=== PATIENT | female | born 1990 | race Hispanic/Latino ===

== ENCOUNTER 2023-02-15 09:05 | Emergency (ER) | payer OTHER ==
[~2023-02-15] VITALS: Ht 154.9 cm; Wt 97.1 kg
[2023-02-15] MEDS ORDERED: IBUPROFEN 600 MG TABLET PO ONE (10:00)
[2023-02-15] MEDS ORDERED: IBUP-2070 PO (10:34)
[2023-02-15 10:47] VITALS: BP 112/67
== END 2023-02-15 10:51 | disposition home or self-care (01) ==
LOC: EDH 09:05
DX: J02.9 Acute pharyngitis, unspecified (principal); Z20.822 Contact with and (suspected) exposure to COVID-19; Z98.890 Other specified postprocedural states
CPT/HCPCS: 99283; 87635; 87880; 87804 ×2; C9803

== ENCOUNTER 2023-07-25 19:17 | Emergency (ER) | payer OTHER ==
[~2023-07-25] VITALS: Ht 154.9 cm; Wt 97.5 kg
[~2023-07-25 19:17] MED LIST: IBUP-2070 PO
[2023-07-25 19:38] VITALS: BP 129/68; PULSE 76; RESP 18
[2023-07-25] MEDS ORDERED: 0.9%NACL 1000ML 1,000 ML IV ONE (20:00)
[2023-07-25 20:03] LABS: BASOPHILS # (AUTO) 0.05 K/uL (0.00-0.20); BASOPHILS % (AUTO) 0.4 % (0.0-5.0); EOSINOPHILS # (AUTO) 0.06 K/uL (0.00-0.70); EOSINOPHILS % (AUTO) 0.5 % (0.0-8.0); HEMATOCRIT 39.9 % (36-48); IMMATURE GRANULOCYTE ABSOLUTE 0.04 K/uL (0-1); LYMPHOCYTES # (AUTO) 2.8 K/uL (1.0-4.8); LYMPHOCYTES % (AUTO) 23.1 % (21.0-51.0); MEAN CORPUSCULAR HEMOGLOBIN 25.7 pg (27.0-33.0); MEAN CORPUSCULAR HGB CONC 31.8 g/dL (32.0-36.0); MEAN CORPUSCULAR VOLUME 80.6 fL (79-99); MONOCYTES # (AUTO) 0.5 K/uL (0.1-1.0); MONOCYTES % (AUTO) 3.8 % (3.0-13.0); NEUTROPHILS # (AUTO) 8.8 K/uL (1.8-7.7); NEUTROPHILS % (AUTO) 71.9 % (40.0-77.0); PLATELET COUNT (AUTO) 377 K/uL (130-400); RED BLOOD CELL COUNT(AUTO) 4.95 MIL/uL (4.00-5.50); RED CELL DISTRIBUTION WIDTH 16.3 % (11.0-15.5); WHITE BLOOD COUNT (AUTO) 12.2 K/uL (4.8-10.8)
[2023-07-25 20:13] LABS: CREATININE 0.9 mg/dL (0.5-1.5); POTASSIUM 3.8 mmol/L (3.5-5.1)
[2023-07-25 20:14] LABS: APPEARANCE,URINE CLOUDY (CLEAR); BILIRUBIN,URINE NEGATIVE (NEGATIVE); COLOR,URINE LIGHT-YELLOW (YELLOW); GLUCOSE, URINE (UA) NEGATIVE (NEGATIVE); KETONES,URINE NEGATIVE (NEGATIVE); LEUKOCYTE ESTERASE ,URINE 250 Leu/uL (NEGATIVE); NITRATE,URINE NEGATIVE (NEGATIVE); OCCULT BLOOD,URINE NEGATIVE (NEGATIVE); PROTEIN,URINE NEGATIVE (NEGATIVE); UROBILINOGEN,URINE 0.2 mg/dL (0.2-1.0)
[2023-07-25 20:17] LABS: HCG,QUALITATIVE URINE NEGATIVE (NEGATIVE)
[2023-07-25 20:18] LABS: ADD UA MICROSCOPIC YES; BILIRUBIN,TOTAL 0.4 mg/dL (0.2-1.0); TOTAL PROTEIN, SERUM 7.8 g/dL (6.0-8.3)
[2023-07-25 20:20] LABS: BACTERIA,URINE MOD /HPF (None Seen); MUCUS,URINE RARE LPF (None Seen); SQUAMOUS EPITHELIAL CELL,UR MANY /HPF (0-2)
[2023-07-25] MEDS ORDERED: SULF1TAB42 PO (20:36)
[2023-07-25] MEDS ORDERED: CEFTRIAXONE 1G VIAL IVPB ONE (21:00)
== END 2023-07-25 21:40 | disposition home or self-care (01) ==
LOC: EDH 19:17
DX: N39.0 Urinary tract infection, site not specified (principal); Z79.899 Other long term (current) drug therapy; Z98.890 Other specified postprocedural states
CPT/HCPCS: 99283; 96374; 96361; 80053; 83690; 85025; 87088; 87797; 87486; 81001; 81025; 36415; J7030; J0696

== ENCOUNTER 2025-07-01 03:52 | Observation (INO) | payer MEDICAID ==
[~2025-07-01] VITALS: Ht 154.9 cm; Wt 103.9 kg
[2025-07-01] VITALS (27 sets, daily range): BP systolic 94–135; BP diastolic 54–80; PULSE 63–85; RESP 16–20; TEMP 97.5–98.2; O2SAT 99–100
[~2025-07-01 03:52] MED LIST changes: +IBUP-1492 PO; -IBUP-2070 PO; +LORA10TA7 PO; +SODI30SP3 NS; +SULF1TAB42 PO
[2025-07-01 04:21] LABS: APPEARANCE,URINE CLEAR (CLEAR); GLUCOSE, URINE (UA) NEGATIVE (NEGATIVE); LEUKOCYTE ESTERASE ,URINE NEGATIVE Leu/uL (NEGATIVE); NITRATE,URINE NEGATIVE (NEGATIVE); OCCULT BLOOD,URINE NEGATIVE (NEGATIVE)
[2025-07-01 04:23] LABS: ADD UA MICROSCOPIC NO
--- NOTE | 2025-07-01 04:27 | ERN ---
ED Note History of Present Illness Stated Complaint: C/O RLQ PAIN RADIATING TO BACK W/ N X V Chief Complaint: Abdominal Pain Time Seen by MD: 04:00 Dictation: This is a 34-year-old female who is 4 weeks presented to the emergency room with complaints of nausea vomitings and right lower quadrant abdominal pain radiating to the back. She also reported diarrhea. She denied any constipation. No fever chills or rigors. No history of any burning micturition or dysuria. She ate duran and sausage for dinner and around 8:00 p.m. she developed the abdominal pain. She is 4 weeks Temperature 98.7 pulse 94 respirations 20 blood pressure 139/76 with a pulse oximetry of 98% on room air Allergies: Coded Allergies: No Known Drug Allergies (Unverified Allergy, Unknown, 02/15/23) Home Meds Active Scripts Loratadine (Loratadine) 10 Mg Tablet, 1 TAB PO DAILY for allergy symptoms for 7 Days, #7 TAB 0 Refills Prov:ELADIO STOVALL 01/09/25 Sodium Chloride (Saline Nasal [place]) 0.65 % [place], 1 SPRAY NS QID for 7 Days, #60 ML 0 Refills Prov:ELADIO STOVALL 01/09/25 Sulfamethoxazole/Trimethoprim (Bactrim Ds Tablet) 800 Mg-160 Mg Tablet, 1 TAB PO BID for 10 Days, #20 TAB 0 Refills Prov:ANSHU FOX MD 07/25/23 Ibuprofen (Ibuprofen) 600 Mg Tablet, 600 MG PO Q6H PRN for PAIN, #15 TAB Prov:KAL YANCEY 02/15/23 Past Medical History Past Medical History: No Pertinent History Surgical History: Surgical History Other: HEART SURGERY Family History: Negative Social History: Negative, Lives with family History: Not Applicable : 1 Para: 0 Aborts: 0 RN Note Reviewed/Agreed w/PFSH: Yes Review of System Dictation Constitutional: Negative for fever,chills, and weight loss Eyes: Negative for injury, pain,redness, and discharge ENT: Negative for injury,pain or swelling Cardiovascular: Negative for chest pain, palpitations, and edema Respiratory: Negative for shortness of breath, cough, and wheezing, Abdomen/GI: Positive for abdominal pain, nausea, vomiting, diarrhea, Back: Negative for injury and pain : Negative for injury, bleeding and discharge MS/Extremity: Negative for injury and deformity Skin: Negative for rash, and discoloration Neuro: Negative for headache, weakness, numbness, tingling, and seizure Psych: Negative for suicide ideation, homicidal ideation, and hallucinations Initial Vital Sign VS Vital Signs Date Time Temp Pulse Resp B/P (MAP) Pulse Ox O2 Delivery O2 Flow Rate FiO2 07/01/25 03:55 98.8 94 20 139/76 98 Room Air 07/01/25 04:12 0 21 Physical Exam Dictation General: awake, alert, NAD uncomfortable Head/Face: Normocephalic, atraumatic Eyes: PERRL, EOMI, vision at baseline ENT: oral cavity clear, TMs clear, no signs of infection Neck: Trachea midline, supple, no nuchal rigidity Cardiovascular: RRR, normal S1/S2, No MRGs, no JVD Respiratory: CTAB, no respiratory distress, No rales or wheezes Abdomen: Soft, right side of the abdomen and right lower quadrant tenderness r, non-distended, normal bowel sounds, no guarding or rebound. Skin: Warm, dry, normal turgor, no rash MS/Extremity: Pulses equal, no cyanosis, neurovascular intact, FROM Neuro: COAx4, GCS 15, strength 5/5, CN 2-12 intact, normal cerebellar exam, normal gait, Psych: Normal behavior, mood, and affect normal Extremities-trace edema without any palpable cords, Homans sign is negative Results (Laboratory/Radiology) Laboratory/Radiology Laboratory Tests Test 07/01/25 04:00 07/01/25 04:26 Urine Color LIGHT-YELLOW (YELLOW) Urine Appearance CLEAR (CLEAR) Urine pH 6.0 (5.0-8.0) Urine Specific Miles 1.027 (1.001-1.031) Urine Protein NEGATIVE mg/dL (NEGATIVE) Urine Glucose (UA) NEGATIVE mg/dL (NEGATIVE) Urine Ketones NEGATIVE mg/dL (NEGATIVE) Urine Occult Blood NEGATIVE (NEGATIVE) Urine Nitrate NEGATIVE (NEGATIVE) Urine Bilirubin NEGATIVE mg/dL (NEGATIVE) Urine Urobilinogen 0.2 mg/dL (0.2-1.0) Urine Leukocyte Esterase NEGATIVE Cosme/uL White Blood Count 21.9 K/uL (4.8-10.8) H Red Blood Count 4.82 MIL/uL (4.00-5.50) Hemoglobin 12.9 g/dL (12.0-16.0) Hematocrit 39.1 % (36-48) Mean Corpuscular Volume 81.1 fL (79-99) Mean Corpuscular Hemoglobin 26.8 pg (27.0-33.0) L Mean Corpuscular Hemoglobin Concent 33.0 g/dL (32.0-36.0) Red Cell Distribution Width 17.2 % (11.0-15.5) H Platelet Count 362 K/uL (130-400) Mean Platelet Volume 10.8 fL (7.5-10.5) H Immature Granulocyte % (Auto) 0.5 % (0-1) Neutrophils (%) (Auto) 85.4 % (40.0-77.0) H Lymphocytes (%) (Auto) 10.2 % (21.0-51.0) L Monocytes (%) (Auto) 2.9 % (3.0-13.0) L Eosinophils (%) (Auto) 0.7 % (0.0-8.0) Basophils (%) (Auto) 0.3 % (0.0-5.0) Neutrophils # (Auto) 18.7 K/uL (1.8-7.7) H Lymphocytes # (Auto) 2.2 K/uL (1.0-4.8) Monocytes # (Auto) 0.6 K/uL (0.1-1.0) Eosinophils # (Auto) 0.16 K/uL (0.00-0.70) Basophils # (Auto) 0.06 K/uL (0.00-0.20) Absolute Immature Granulocyte (auto 0.11 K/uL (0-1) Nucleated Red Blood Cells 0.0 % (0.0-0.19) Sodium Level 137 mmol/L (136-145) Potassium Level 3.8 mmol/L (3.5-5.1) Chloride Level 102 mmol/L (101-111) Carbon Dioxide Level 29 mmol/L (21-32) Blood Urea Nitrogen 16 mg/dL (7-18) Creatinine 0.8 mg/dL (0.5-1.0) Glomerular Filtration Rate Calc 100 mL/min (>90) Random Glucose 109 mg/dL (70-105) H Total Calcium 9.0 mg/dL (8.5-10.1) Total Creatine Kinase 92 U/L (21-232) Lipase 29 U/L (16-77) Human Chorionic Gonadotropin, Quant 0 mIU/mL (0-5) Labs Reviewed?: Yes CT Scan Comment: REASON: Post 4 weeks. RLQ pain N?V?D- evaluate Appendicitis or renal colic ORDERING PHYSICIAN: BRONWYN KAUR MD PROCEDURE: ABD PEL WO - CT ABDOMEN/PELVIS W/O CONTRAST EXAM: CT Abdomen and Pelvis without IV contrast CLINICAL HISTORY: Pain. TECHNIQUE: Thin collimated axial CT images of the abdomen and pelvis were obtained with sagittal and coronal reformatted images also submitted. CT scan is done according to ALARA (As Low As Reasonably Achievable). CONTRAST: None. COMPARISON: None. FINDINGS: Mild subsegmental atelectasis in the left lingula and lower lobes. Mild hepatomegaly. There are a few gallstones with questionable gallbladder sludge and subtle gallbladder wall thickening. No focal abnormality within the pancreas, spleen, adrenals, or kidneys. The urinary bladder is suboptimally distended and grossly unremarkable. Enlarged uterus with multiple uterine fibroids, the largest subserosal uterine fibroid in the right posterior fundal region measures up to 5 cm. 2 cm follicular cyst in the right ovary. Unremarkable left ovary. There is a thickened and inflamed retrocecal appendix, measuring up to 1.8 cm in diameter with periappendiceal fatty stranding, compatible with acute appendicitis. No significant bowel dilatation or obstruction. Limited evaluation of the abdominal vessels due to the lack of intravenous contrast. No abdominal aortic aneurysm is evident. No pathological lymphadenopathy in the abdomen or pelvis. No ascites or pneumoperitoneum. No acute bony abnormality is evident. Bilateral chronic L5 spondylolysis with grade 1 anterior listhesis of L5 on S1. IMPRESSIONS: There is acute appendicitis without perforation or abscess. Uterine fibroids. Follicular cyst in the right ovary. Mild hepatomegaly. Bilateral chronic L5 spondylolysis with grade 1 anterior listhesis of L5 on S1. /[place] DICTATED BY: ISABEL RIVERA Jr., MD DATE: 07/01/25 07 ELECTRONICALLY SIGNED BY: ISABEL RIVERA Jr., MD DATE: 07/01/25 0703 ED Course ED Course Orders Procedure Category Date Status Time Cbc With Differential LAB 07/01/25 Complete 04:12 Hcg,Quantitative LAB 07/01/25 Complete 04:12 Urinalysis Profile LAB 07/01/25 Complete 04:12 0.9%Nacl 1000ml (Ns PHA 07/01/25 Complete 1000ml) 04:30 Morphine 2mg Syg PHA 07/01/25 Complete (Morphine 2mg Syg) 04:30 Ondansetron 4mg Inj PHA 07/01/25 Complete (Zofran 4mg Inj) 04:30 Creatine Kinase, Total LAB 07/01/25 Complete 04:12 Lipase LAB 07/01/25 Complete 04:12 Basic Metabolic Panel LAB 07/01/25 Complete 04:12 Ct Abdomen/Pelvis W/O CT 07/01/25 Resulted Contrast 04:57 Zosyn 3.375gm+Ns 50ml PHA 07/01/25 Complete (Zosyn 3.375gm+Ns 06:30 0.9%Nacl 1000ml (Ns PHA 07/01/25 In Process 1000ml) 06:30 Morphine 4mg Syg PHA 07/01/25 Complete (Morphine 4mg Syg) 06:30 General Surgery CONPHYSVC 07/01/25 Transmitted Consult 06:26 General Surgery CONPHYSVC 07/01/25 Transmitted Consult 06:26 Edm Admit Bridge Order ADM 07/01/25 Transmitted 06:40 Current Medications Medications (Trade) Dose Ordered Sig/Huber Route PRN Reason Start Time Stop Time Status Last Admin Dose Admin Morphine Sulfate (morPHINE 2MG SYG) 2 mg ONCE ONCE IVP 07/01/25 04:30 07/01/25 04:31 DC 07/01/25 04:31 Morphine Sulfate (morPHINE 4MG SYG) 4 mg ONCE ONCE IVP 07/01/25 06:30 07/01/25 06:31 DC Ondansetron HCl (zoFRAN 4MG INJ) 4 mg ONCE ONCE IVP 07/01/25 04:30 07/01/25 04:31 DC 07/01/25 04:31 Piperacillin Sod/ Tazobactam Sod (Zosyn 3.375gm+NS 50ml) 3.375 gm ONCE ONCE IV 07/01/25 06:30 07/01/25 06:31 DC Sodium Chloride 1,000 ml @ 0 mls/hr ONCE ONCE IV 07/01/25 04:30 07/01/25 04:31 DC 07/01/25 04:31 Sodium Chloride 1,000 ml @ 125 mls/hr ONCE ONCE IV 07/01/25 06:30 07/01/25 14:29 Vital Signs Date Time Temp Pulse Resp B/P (MAP) Pulse Ox O2 Delivery O2 Flow Rate FiO2 07/01/25 05:42 98.2 80 20 136/82 99 Room Air* 0 21 07/01/25 04:12 98.2 84 20 130/80 99 Room Air* 0 21 07/01/25 03:55 98.8 94 20 139/76 98 Room Air We will perform diagnostic labs, advanced imaging and administer medications according to the patient's complaint. Once the results are available, will review and personally interpreted the labs to rule out any acute life- threatening emergency the trach require immediate intervention and treatment. I will then re-evaluate the patient after treatment and diagnostic exams have return to determine whether the patient requires any further testing, can safely be discharged home or need further admission to hospital for additional treatment and evaluation. 4:50 a.m. labs reviewed CBC shows a leukocytosis of 21.9 hemoglobin 12.9 platelets 362. BNP 7 is with a normal limits lipase is normal test is negative urinalysis is unremarkable. In view of severe leukocytosis and right lower quadrant pain I have a concern for appendicitis or colitis. We will pursue a CT scan of the abdomen and pelvis. 6:[address] Avila general surgeon and updated him on the patient's CT findings of acute appendicitis. He instructed to keep the patient NPO for appendectomy. 6:45 a.m. patient accepted by [facility] provider for hospitalist group for admission and further management Medical Decision Making MDM Differential diagnosis: Colitis, diverticulitis, appendicitis, renal colic, pelvic infection Rationale: Tests considered and ordered secondary to shared decision making include: labs, ECG and radiology Previous outside records reviewed: Old ER visits. Risk of complication and/or morbidity or mortality of patient management: None Medications-Per medication reconciliation Need for hospitalization: Patient does meet criteria for hospitalization. Need for emergency major/minor surgery: No There are no social concerns with this patient. Prescription drug management Prescriptions will include symptomatic care Patient's prior external medical records from other ER visits were reviewed by me as indicated. Prior testing and results from previous visits were reviewed. Prior tests were taken into account with medical decision making and resource utilization, independent historian/historians were used to obtain complete medical history. I independently interpreted the test that were performed, results were reviewed by me and considered findings on radiology if ordered. Medical management and examination interpretation discussions were had by me with other qualified healthcare professionals as indicated for the patient's care. Problem List Problem List: (1) Acute appendicitis (2) Leukocytosis DX & DISP Disposition: Inpatient Decision to Admit Time: 06:11 Departure Impression: Primary Impression: Acute appendicitis Additional Impression: Leukocytosis Condition: Stable Additional Instructions: Patient was informed of all the diagnostic labs and procedures conducted in the emergency room today and demonstrated understanding of the results. I personally reviewed and interpreted all the diagnostic exams performed in the ER today. The patient will be admitted to the hospital for further treatment and evaluation. Disposition-admit to facility Condition-stable/guarded Course-uncertain at this time Pain status-decreased Assessment-exam unchanged Admission Certification- I certify that the patients status is appropriate and is based on my best clinical judgment and the patient's condition as documented in the medical records Referrals: JANELLE SCOTT MD (PCP) BRONWYN KAUR MD Jul 01, 2025 04:27
[2025-07-01] MEDS: 0.9%NACL 1000ML 1,000 ML IV ONE ×2 (04:31→06:51)
[2025-07-01 04:34] LABS: IMMATURE GRANULOCYTE ABSOLUTE 0.11 K/uL (0-1); NUCLEATED RED BLOOD CELLS 0.0 % (0.0-0.19); PLATELET COUNT (AUTO) 362 K/uL (130-400); RED BLOOD CELL COUNT(AUTO) 4.82 MIL/uL (4.00-5.50); RED CELL DISTRIBUTION WIDTH 17.2 % (11.0-15.5); WHITE BLOOD COUNT (AUTO) 21.9 K/uL (4.8-10.8)
[2025-07-01 04:43] LABS: CREATININE 0.8 mg/dL (0.5-1.0); GLOMERULAR FILTR. RATE CALC 100.0 mL/min (>90); GLUCOSE,RANDOM 109.0 mg/dL (70-105); SODIUM SERUM 137.0 mmol/L (136-145); UREA NITROGEN, BLOOD 16.0 mg/dL (7-18)
[2025-07-01 04:53] LABS: CREATINE KINASE, TOTAL 92.0 U/L (21-232); HCG,QUANTITATIVE 0.0 mIU/mL (0-5)
--- NOTE | 2025-07-01 06:04 | HMCIMG ---
EXAM: CT Abdomen and Pelvis without IV contrast CLINICAL HISTORY: Pain. TECHNIQUE: Thin collimated axial CT images of the abdomen and pelvis were obtained with sagittal and coronal reformatted images also submitted. CT scan is done according to ALARA (As Low As Reasonably Achievable). CONTRAST: None. COMPARISON: None. FINDINGS: Mild subsegmental atelectasis in the left lingula and lower lobes. Mild hepatomegaly. There are a few gallstones with questionable gallbladder sludge and subtle gallbladder wall thickening. No focal abnormality within the pancreas, spleen, adrenals, or kidneys. The urinary bladder is suboptimally distended and grossly unremarkable. Enlarged uterus with multiple uterine fibroids, the largest subserosal uterine fibroid in the right posterior fundal region measures up to 5 cm. 2 cm follicular cyst in the right ovary. Unremarkable left ovary. There is a thickened and inflamed retrocecal appendix, measuring up to 1.8 cm in diameter with periappendiceal fatty stranding, compatible with acute appendicitis. No significant bowel dilatation or obstruction. Limited evaluation of the abdominal vessels due to the lack of intravenous contrast. No abdominal aortic aneurysm is evident. No pathological lymphadenopathy in the abdomen or pelvis. No ascites or pneumoperitoneum. No acute bony abnormality is evident. Bilateral chronic L5 spondylolysis with grade 1 anterior listhesis of L5 on S1. IMPRESSIONS: There is acute appendicitis without perforation or abscess. Uterine fibroids. Follicular cyst in the right ovary. Mild hepatomegaly. Bilateral chronic L5 spondylolysis with grade 1 anterior listhesis of L5 on S1. /[place]
[2025-07-01] MEDS: ZOSYN 3.375GM +NS 50ML IV ONE (06:50)
[2025-07-01] MEDS ORDERED: PoTASSium chloRIDE 20MEQ ER 20 MEQ ERTAB PO PRN (08:00)
[2025-07-01] MEDS ORDERED: PoTASSium chl 10% ELIXIR 20MEQ 20 MEQ/15 ML UDCUP PO PRN (08:00)
[2025-07-01] MEDS ORDERED: MAGNESIUM 2GM PREMIX 50ML 50 ML IV PRN (08:00)
[2025-07-01 08:02] LABS: INR 0.96 (0.85-1.15)
[2025-07-01 08:05] LABS: ASPARTATE AMINOTRANSFERASE 18.0 U/L (10-37); TOTAL PROTEIN, SERUM 7.5 g/dL (6.0-8.3)
--- NOTE | 2025-07-01 09:01 | NUR ---
CRITICAL RESULT REPORTED TO DOCTOR
--- NOTE | 2025-07-01 11:09 | HP ---
[facility] HISTORY AND PHYSICAL Date of Service: Jul 01, 2025 Time of Service: 10:58 HISTORY OF PRESENT ILLNESS: Patient is a 34-year-old female who presented to the emergency department with complaints of abdominal pain. She has not no significant past medical history other than a performed 4 weeks ago for the delivery of her 1st baby. Patient stated that the pain started around 8 PM yesterday night in the area above the umbilicus and gradually migrated to her right lower quadrant. She states that the pain is sharp and radiates to her back. Patient also reported an episode of nausea and vomiting associated with the pain. Patient then came to the ED where she was given pain medications to help relieve her pain. On admission the patient's blood pressure was 139/76, respiratory rate was 20, pulse rate was 94, and a temperature of 98.8. Labs showed that the patient had an elevated white blood cell count at 21.9 with a relative neutrophilia of 85.4% indicating a left shift. CT abdomen and pelvis on 07/01 revealed acute appendicitis without perforation or abscess, uterine fibroids, follicular cyst in the right ovary, mild hepatomegaly, and bilateral chronic L5 spondylolysis with grade 1 anterior listhesis of L5 on S1. general surgery was consulted today for evaluation of the patient for appendicitis. REVIEW OF SYSTEMS CONSTITUTIONAL: Denies fevers, chills, or night sweats. No unintentional weight loss reported. NEUROLOGICAL: Denies headache, amaurosis fugax, motor weakness, sensory deficit, vertigo/spinning sensation, gait abnormalities, or tremors. CARDIOVASCULAR: Denies any exertional angina, dyspnea on exertion, orthopnea, paroxysmal nocturnal dyspnea, palpitations, life-threatening arrhythmias, claudication. PULMONARY: Denies any shortness of breath, cough, phlegm/sputum, hemoptysis, pleuritic chest pain. GASTROINTESTINAL: Denies any type of dysphagia to either liquids or solids. Denies pyrosis, early satiety, constipation, or changes in stool consistency or caliber. Denies coffee-ground emesis, hematemesis, hematochezia, or melanotic stools. Constipation, nausea, vomiting, 1 episode of diarrhea, abdominal pain in the right lower quadrant. ONCOLOGIC: Denies personal history of malignancy. DERMATOLOGIC: Denies rashes or pruritus. PSYCHIATRIC: Denies any suicidal or homicidal ideation. Denies hallucinations. PAST MEDICAL HISTORY: No relevant past medical history. PAST SURGICAL HISTORY: s/p Status post cardiac surgery at age of 5 years for a septal defect s/p section 05/30 PAST SOCIAL HISTORY: Not evaluated FAMILY HISTORY: Mother-stomach problems No family history of premature . Coded Allergies: No Known Drug Allergies (Unverified Allergy, Unknown, 02/15/23) PHYSICAL EXAM GENERAL APPEARANCE: The patient is awake, alert, and oriented, in no acute cardiopulmonary distress. HEENT: Face is symmetric. Pupils are equal and reactive. Extraocular movements are intact. CHEST: Normal chest expansion. No Telemetry. LUNGS: Absence of any rales, rhonchi or any wheezing. CARDIOVASCULAR: Regular. S1 and S2 normal. No appreciable rubs, murmurs or gallops. ABDOMEN: Tenderness in the right lower quadrant. There is no rebound, voluntary guarding, or rigidity. : Deferred. No Quesada. EXTREMITIES: Non-edematous and not cyanotic. No clubbing. Good capillary refill. SKIN: No skin breakdown. Vital Sign (Last 24 Hours) 07/01/25 05:42 Temp 98.2 Pulse 80 Resp 20 B/P (MAP) 136/82 Pulse Ox 99 O2 Delivery Room Air* O2 Flow Rate 0 FiO2 21 LABS: Laboratory: Test 07/01/25 08:42 07/01/25 04:26 07/01/25 04:00 Range/Units Hemoglobin A1c 5.7 4.0-6.0 % Estimated Average Glucose (eAG) 117 70-126 mg/dL Lactic Acid Level 2.2 0.8-2.5 mmol/L C-Reactive Protein, Quantitative 21.20 H 0.5-3.0 mg/L Procalcitonin < 0.05 L 0.05-0.5 ng/mL Thyroid Stimulating Hormone (TSH) 0.91 0.36-3.74 uIU/mL White Blood Count 21.9 H 4.8-10.8 K/uL Red Blood Count 4.82 4.00-5.50 MIL/uL Hemoglobin 12.9 12.0-16.0 g/dL Hematocrit 39.1 36-48 % Mean Corpuscular Volume 81.1 79-99 fL Mean Corpuscular Hemoglobin 26.8 L 27.0-33.0 pg Mean Corpuscular Hemoglobin Concent 33.0 32.0-36.0 g/dL Red Cell Distribution Width 17.2 H 11.0-15.5 % Platelet Count 362 130-400 K/uL Mean Platelet Volume 10.8 H 7.5-10.5 fL Immature Granulocyte % (Auto) 0.5 0-1 % Neutrophils (%) (Auto) 85.4 H 40.0-77.0 % Lymphocytes (%) (Auto) 10.2 L 21.0-51.0 % Monocytes (%) (Auto) 2.9 L 3.0-13.0 % Eosinophils (%) (Auto) 0.7 0.0-8.0 % Basophils (%) (Auto) 0.3 0.0-5.0 % Neutrophils # (Auto) 18.7 H 1.8-7.7 K/uL Lymphocytes # (Auto) 2.2 1.0-4.8 K/uL Monocytes # (Auto) 0.6 0.1-1.0 K/uL Eosinophils # (Auto) 0.16 0.00-0.70 K/uL Basophils # (Auto) 0.06 0.00-0.20 K/uL Absolute Immature Granulocyte (auto 0.11 0-1 K/uL Nucleated Red Blood Cells 0.0 0.0-0.19 % Prothrombin Time 10.2 9.6-11.6 SEC Prothromb Time International Ratio 0.96 0.85-1.15 Activated Partial Thromboplast Time 30.2 26.3-35.5 SEC Sodium Level 137 136-145 mmol/L Potassium Level 3.8 3.5-5.1 mmol/L Chloride Level 102 101-111 mmol/L Carbon Dioxide Level 29 21-32 mmol/L Blood Urea Nitrogen 16 7-18 mg/dL Creatinine 0.8 0.5-1.0 mg/dL Glomerular Filtration Rate Calc 100 >90 mL/min Random Glucose 109 H 70-105 mg/dL Total Calcium 9.0 8.5-10.1 mg/dL Total Bilirubin 0.2 0.2-1.0 mg/dL Direct Bilirubin 0.1 0.0-0.3 mg/dL Aspartate Amino Transf (AST/SGOT) 18 10-37 U/L Alanine Aminotransferase (ALT/SGPT) 35 12-78 U/L Alkaline Phosphatase 123 50-136 U/L Total Creatine Kinase 92 21-232 U/L Total Protein 7.5 6.0-8.3 g/dL Albumin 3.5 3.5-5.0 g/dL Lipase 29 16-77 U/L Human Chorionic Gonadotropin, Quant 0 0-5 mIU/mL Urine Color LIGHT-YELLOW YELLOW Urine Appearance CLEAR CLEAR Urine pH 6.0 5.0-8.0 Urine Specific Brooks 1.027 1.001-1.031 Urine Protein NEGATIVE NEGATIVE mg/dL Urine Glucose (UA) NEGATIVE NEGATIVE mg/dL Urine Ketones NEGATIVE NEGATIVE mg/dL Urine Occult Blood NEGATIVE NEGATIVE Urine Nitrate NEGATIVE NEGATIVE Urine Bilirubin NEGATIVE NEGATIVE mg/dL Urine Urobilinogen 0.2 0.2-1.0 mg/dL Urine Leukocyte Esterase NEGATIVE NEGATIVE Cosme/uL Current Medications Medications (Trade) Dose Ordered Sig/Huber Route PRN Reason Start Time Stop Time Status Last Admin Dose Admin Acetaminophen (TYLenol 325MG TAB) 650 mg Q4H PRN PO MILD PAIN (1-3) 07/01/25 08:30 07/31/25 08:29 Acetaminophen (TYLenol 325MG TAB) 650 mg Q6H PRN PO TEMPERATURE GREATER THAN 101.5 07/01/25 08:30 07/31/25 08:29 Ceftriaxone Sodium (ROCEphine 1G INJ) 1 gm Q24H IVPB 07/01/25 08:30 07/11/25 08:29 07/01/25 08:36 1 GM Magnesium Sulfate 50 ml @ 0 mls/hr PROTOCOL PRN IV mgprotocol 07/01/25 08:00 07/31/25 07:59 Metronidazole/ Sodium Chloride 100 ml @ 100 mls/hr Q8H6 IVPB 07/01/25 14:00 07/11/25 13:59 Morphine Sulfate (morPHINE 4MG SYG) 6 mg Q6H PRN IVP SEVERE PAIN (7-10) 07/01/25 12:00 07/06/25 11:59 Ondansetron HCl (zoFRAN 4MG INJ) 4 mg Q6H PRN IVP NAUSEA/VOMITING 07/01/25 08:30 07/31/25 08:29 Pantoprazole Sodium (PROTonix 40MG INJ) 40 mg DAILY IVP 07/01/25 09:00 07/31/25 08:59 07/01/25 08:36 40 MG Potassium Chloride 100 ml @ 50 mls/hr AD PRN IV POTASSIUM PROTOCOL 07/01/25 08:00 07/31/25 07:59 Potassium Chloride 100 ml @ 100 mls/hr AD PRN IV POTASSIUM PROTOCOL 07/01/25 08:00 07/31/25 07:59 Potassium Chloride (K-Dur/Klor-Con 20meq) 20 meq AD PRN PO POTASSIUM PROTOCOL 07/01/25 08:00 07/31/25 07:59 Potassium Chloride (KCl 10% Elixir 20meq/15ml) 20 meq AD PRN PO POTASSIUM PROTOCOL 07/01/25 08:00 07/31/25 07:59 DIAGNOSTICS / RADIOLOGY: [facility] [address] [place] [address] IMAGING REPORT Addendum PATIENT: RASHEED SULLIVAN MR#: [id number] : 1990 SEX: F AGE: 34 LOCATION: [facility] ORDER 7 STATUS: REG ER REPORT#: [id number] SERVICE 6 REASON: Post 4 weeks. RLQ pain N?V?D- evaluate Appendicitis or renal colic ORDERING PHYSICIAN: BRONWYN KAUR MD PROCEDURE: ABD PEL WO - CT ABDOMEN/PELVIS W/O CONTRAST ADDENDUM REPORT ADDENDUM: Results were shared by telephone at 7:07 am on 07/01/25 and acknowledged by Chart Nurse Alfa Poole /[facility] EXAM: CT Abdomen and Pelvis without IV contrast CLINICAL HISTORY: Pain. TECHNIQUE: Thin collimated axial CT images of the abdomen and pelvis were obtained with sagittal and coronal reformatted images also submitted. CT scan is done according to ALARA (As Low As Reasonably Achievable). CONTRAST: None. COMPARISON: None. FINDINGS: Mild subsegmental atelectasis in the left lingula and lower lobes. Mild hepatomegaly. There are a few gallstones with questionable gallbladder sludge and subtle gallbladder wall thickening. No focal abnormality within the pancreas, spleen, adrenals, or kidneys. The urinary bladder is suboptimally distended and grossly unremarkable. Enlarged uterus with multiple uterine fibroids, the largest subserosal uterine fibroid in the right posterior fundal region measures up to 5 cm. 2 cm follicular cyst in the right ovary. Unremarkable left ovary. There is a thickened and inflamed retrocecal appendix, measuring up to 1.8 cm in diameter with periappendiceal fatty stranding, compatible with acute appendicitis. No significant bowel dilatation or obstruction. Limited evaluation of the abdominal vessels due to the lack of intravenous contrast. No abdominal aortic aneurysm is evident. No pathological lymphadenopathy in the abdomen or pelvis. No ascites or pneumoperitoneum. No acute bony abnormality is evident. Bilateral chronic L5 spondylolysis with grade 1 anterior listhesis of L5 on S1. IMPRESSIONS: There is acute appendicitis without perforation or abscess. Uterine fibroids. Follicular cyst in the right ovary. Mild hepatomegaly. Bilateral chronic L5 spondylolysis with grade 1 anterior listhesis of L5 on S1. /[place] DICTATED BY: ISABEL RIVERA Jr., MD DATE: 07/01/25708 ELECTRONICALLY SIGNED BY: DATE: EXAM: CT Abdomen and Pelvis without IV contrast CLINICAL HISTORY: Pain. TECHNIQUE: Thin collimated axial CT images of the abdomen and pelvis were obtained with sagittal and coronal reformatted images also submitted. CT scan is done according to ALARA (As Low As Reasonably Achievable). CONTRAST: None. COMPARISON: None. FINDINGS: Mild subsegmental atelectasis in the left lingula and lower lobes. Mild hepatomegaly. There are a few gallstones with questionable gallbladder sludge and subtle gallbladder wall thickening. No focal abnormality within the pancreas, spleen, adrenals, or kidneys. The urinary bladder is suboptimally distended and grossly unremarkable. Enlarged uterus with multiple uterine fibroids, the largest subserosal uterine fibroid in the right posterior fundal region measures up to 5 cm. 2 cm follicular cyst in the right ovary. Unremarkable left ovary. There is a thickened and inflamed retrocecal appendix, measuring up to 1.8 cm in diameter with periappendiceal fatty stranding, compatible with acute appendicitis. No significant bowel dilatation or obstruction. Limited evaluation of the abdominal vessels due to the lack of intravenous contrast. No abdominal aortic aneurysm is evident. No pathological lymphadenopathy in the abdomen or pelvis. No ascites or pneumoperitoneum. No acute bony abnormality is evident. Bilateral chronic L5 spondylolysis with grade 1 anterior listhesis of L5 on S1. IMPRESSIONS: There is acute appendicitis without perforation or abscess. Uterine fibroids. Follicular cyst in the right ovary. Mild hepatomegaly. Bilateral chronic L5 spondylolysis with grade 1 anterior listhesis of L5 on S1. /[place] DICTATED BY: ISABEL RIVERA Jr., MD DATE: 07/01/25702 ELECTRONICALLY SIGNED BY: ISABEL RIVERA Jr., MD DATE: 07/01/25702 ASSESSMENT: Acute appendicitis, POA PLAN: Acute appendicitis: -CT abdomen and pelvis on 07/01/25 confirmed the presence of acute appendicitis. -patient's WBC count on admission was 21.9 with a relative neutrophilia of 85.4%. -general surgery consulted, pending evaluation. -patient is receiving 6 mg morphine q.6 hours for pain management. -ordered a CRP, procalcitonin, lactic acid. Follow up with the results -continue to monitor for now. ATTESTATION BY PHYSICIAN I have seen and examined the patient. I reviewed the documentation, medical decision making, and treatment plan as noted by the resident provider above. I agree with the findings and plan of care. Jac Echevarria MD, HEMA MD Jul 01, 2025 11:09
--- NOTE | 2025-07-01 11:37 | CONS ---
CONSULT NOTE: Consulting physician:Dr Patel Consulting service: General surgery Reason for consultation: Acute appendicitis History of present illness: This is a 34-year-old female with a medical history of recent roughly three weeks prior he has been consulted to surgery for concerns of acute appendicitis. Patient began with discomfort yesterday evening which started in her middle abdomen migrated to right lower quadrant. Due to concerns patient presented to the hospital for further evaluation. Patient reports that episodes of nausea and vomiting associated with the pain. Initial imaging concerning for 1.8 cm appendix with inflammation concerning for appendicitis. On physical exam patient continues with right lower quadrant tenderness as well as rebound tenderness. WBCs elevated to 21.9 with a hemoglobin of 12.9. Patient's vitals remained stable patient continues IV fluids and IV antibiotics and currently NPO Medical history: Surgical history: Recent Review of systems: General: No Fever, No Chills, No Night Sweats, No Fatigue, No Malaise, No Appetite, No Other HEENT: No Head Aches, No Visual Changes, No Eye Pain, No Ear Pain, No Dysphasia, No Sinus Congestion, No Post Nasal Drip, No Sore Throat, No Other Pulmonary: No Dyspnea, No Cough, No Pleuritic Chest Pain, No Other Cardiovascular: No: Chest Pain, Palpitations, Orthopnea, Paroxysmal No Dyspnea, Edema, Lt Headedness, Other Gastrointestinal: No: Nausea, Vomiting, Diarrhea, Constipation, Melena, Hem atochezia, Other Genitourinary: No Dysuria, No Frequency, No Incontinence, No Hematuria, No Retention, No Other Musculoskeletal: No: other, neck pain, shoulder pain, arm pain, back pain, hand pain, leg pain, foot pain Skin: No Urticaria, No Rash, No Other Neurological: No: Weakness, Numbness, Incoordination, Change in speech, Confusion, Seizures, Other Physical exam: General: Awake alert and oriented Heart: Regular rate and rhythm} Lungs: [Clear to auscultation no distress Abdomen: [ right lower quadrant tenderness with rebound tenderness, scars healed well Assessment: This is a 34-year-old female with the acute appendicitis Plan: At this point in time patient is to remain NPO Patient will be scheduled for laparoscopic appendectomy to be performed by Dr. Edgardo Avila Surgical team to follow patient closely Nursing to report any further acute events MARCIE LEW Jr. Jul 01, 2025 11:37
--- NOTE | 2025-07-01 12:45 | NUR ---
PATIENT TAKEN TO PRE- OPERATING ROOM FOR SCHEDULED PROCEDURE
[2025-07-01] MEDS ORDERED: MIDAZOLAM HCL 1 MG/ML 2ML VIAL ONE (13:12)
[2025-07-01] MEDS ORDERED: LIDOCAINE PF 100MG/5ML (2%) SYRINGE 5ML ONE (13:12)
[2025-07-01] MEDS ORDERED: 0.9%NACL 10ML VIAL ONE (13:13)
[2025-07-01] MEDS ORDERED: LIDOCAINE HCL 1% 20 ML VIAL ONE (13:17)
--- NOTE | 2025-07-01 14:48 | OP ---
Operative Note: DATE OF PROCEDURE: 07/01/25 SURGEON: CHRIS BOWDEN DO FACILITIES PAINTER: None ANESTHESIA: General ANESTHESIOLOGIST/MASTER OCEAN: MASTER OCEAN PREOPERATIVE DIAGNOSIS: Acute appendicitis POSTOPERATIVE DIAGNOSIS: Acute uncomplicated appendicitis SYNOPSIS: None PROCEDURE: Laparoscopic appendectomy ESTIMATED BLOOD LOSS: 15 cc INDICATIONS: This is a 34-year-old female with 24 hours of right lower quadrant abdominal pain. She had a leukocytosis and a CT scan showing an enlarged and indurated appendix. Patient was admitted and started on IV antibiotics. Surgery was consulted for acute appendicitis. I recommended laparoscopic appendectomy. I discussed the procedure in detail with the patient. All questions were answered. The patient expressed understanding and agreement with the plan. DESCRIPTION OF PROCEDURE: Patient was placed on the operating table in the supine position with the left arm tucked. After being sedated and intubated by anesthesia the abdomen was prepped and draped in the usual sterile fashion. Patient is on antibiotics from the floor next dose not due for 3 hours. A trans verse supraumbilical skin incision was made and dissection was carried down to the level of fascia. The fascia was grasped with 2 Boone clamps and elevated. The fascia was incised and the peritoneum was entered bluntly. A 12 mm balloon port was inserted into the peritoneal cavity and the abdomen was insufflated. The patient tolerated insufflation well. A laparoscopic camera was inserted into the abdomen and all 4 quadrants were inspected. No gross abnormalities apparent and no evidence of inadvertent injury apparent. Two 5 mm ports were then placed in the suprapubic region and left lower quadrant under direct visualization. The patient was placed in Trendelenburg position with right side up. The appendix was identified and found to be indurated and dilated with minimal adhesions to surrounding fat. The mesoappendix was divided using the Vuoyant vessel sealing device. The base of the appendix was transected using a blue load laparoscopic stapling device. The staple line was inspected and found to be hemostatic. The appendix was placed into a laparoscopic bag. A moderate amount of turbid fluid was suctioned from the pelvis. The 5 mm ports were removed under direct visualization and no ongoing bleeding evident. The appendix was removed with the 12 mm port and handed off for routine pathology. The fascia of the 12 mm port site was approximated using 0 Vicryl in a single f [id number] suture. The skin was approximated using skin ludwig. Wounds were dressed with gauze and tape. All instrument, needle, and sponge counts were correct at the end of the procedure. The patient tolerated the procedure well. The patient was aroused from sedation extubated and taken to the postanesthesia care unit in good condition. CHRIS BOWDEN DO Jul 01, 2025 14:48
--- NOTE | 2025-07-01 15:20 | NUR ---
REPORT FROM PACU ANA RN FROM PACU GAVE ME REPORT. I TOOK REPORT ON PT IN PLACE OF MARCIANO BUCK DUE TO LUNCH BREAK. WILL CONTINUE TO MONITOR PATIENT AND PLAN OF CARE.
--- NOTE | 2025-07-01 16:36 | NUR ---
PATIENT TRANSFERED TO FOURTH FLOOR POST PROCEDURE. REPORT WAS GIVING TO NURSE. PATIENTS BELONGINGS WERE LEFT WITH SECURITY DURING SURGERY.
[2025-07-02] MEDS: SUGAMMADEX SODIUM 200 MG/2 ML VIAL IV ONE (00:42)
[2025-07-02 03:00] VITALS: BP 117/58; PULSE 67; RESP 16; TEMP 98.2
[2025-07-02 05:52] LABS: IMMATURE GRANULOCYTE ABSOLUTE 0.05 K/uL (0-1); NUCLEATED RED BLOOD CELLS 0.0 % (0.0-0.19); PLATELET COUNT (AUTO) 333 K/uL (130-400); RED BLOOD CELL COUNT(AUTO) 4.41 MIL/uL (4.00-5.50); RED CELL DISTRIBUTION WIDTH 17.0 % (11.0-15.5); WHITE BLOOD COUNT (AUTO) 14.0 K/uL (4.8-10.8)
[2025-07-02 05:59] LABS: CREATININE 0.6 mg/dL (0.5-1.0); GLOMERULAR FILTR. RATE CALC 122.0 mL/min (>90); GLUCOSE,RANDOM 92.0 mg/dL (70-105); SODIUM SERUM 139.0 mmol/L (136-145); UREA NITROGEN, BLOOD 6.0 mg/dL (7-18)
[2025-07-02 07:49] VITALS: BP 127/75; PULSE 68; RESP 18; TEMP 98.7
[2025-07-02 08:00] VITALS: O2SAT 97
[2025-07-02 11:18] VITALS: BP 137/83; PULSE 75; RESP 20; TEMP 97.9
--- NOTE | 2025-07-02 11:25 | PN ---
[facility] PROGRESS NOTE Date of Service: Jul 02, 2025 Time of Service: 11:12 SUBJECTIVE: Patient is a 34-year-old female who presented to the emergency department with complaints of abdominal pain. She has not no significant past medical history other than a performed 4 weeks ago for the delivery of her 1st baby. Patient stated that the pain started around 8 PM yesterday night in the area above the umbilicus and gradually migrated to her right lower quadrant. She states that the pain is sharp and radiates to her back. Patient also reported an episode of nausea and vomiting associated with the pain. Patient then came to the ED where she was given pain medications to help relieve her pain. On admission the patient's blood pressure was 139/76, respiratory rate was 20, pulse rate was 94, and a temperature of 98.8. Labs showed that the patient had an elevated white blood cell count at 21.9 with a relative neutrophilia of 85.4% indicating a left shift. CT abdomen and pelvis on 07/01 revealed acute appendicitis without perforation or abscess, uterine fibroids, follicular cyst in the right ovary, mild hepat omegaly, and bilateral chronic L5 spondylolysis with grade 1 anterior listhesis of L5 on S1. general surgery was consulted today for evaluation of the patient for appendicitis. 07/02/2025: Patient was seen bedside in room 410. Patient was alert, awake, and oriented during my visit. Patient is doing well without any active complaints apart from eye watering from her allergies. Patient only endorses mild soreness at the incision site. Her WBC count is trending down to 14 from 21 on admission. Her vitals look stable with a blood pressure of 127/75. Physical therapy evaluation and case management evaluation ordered for discharge planning, pending evaluation. We will wait on surgery's recommendation regarding potential discharge. REVIEW OF SYSTEMS CONSTITUTIONAL: Denies fevers, chills, or night sweats. No unintentional weight loss reported. NEUROLOGICAL: Denies headache, amaurosis fugax, motor weakness, sensory d eficit, vertigo/spinning sensation, gait abnormalities, or tremors. CARDIOVASCULAR: Denies any exertional angina, dyspnea on exertion, orthopnea, paroxysmal nocturnal dyspnea, palpitations, life-threatening arrhythmias, claudication. PULMONARY: Denies any shortness of breath, cough, phlegm/sputum, hemoptysis, pleuritic chest pain. GASTROINTESTINAL: Denies any type of dysphagia to either liquids or solids. Denies pyrosis, early satiety, constipation, or changes in stool consistency or caliber. Denies coffee-ground emesis, hematemesis, hematochezia, or melanotic stools. Constipation, nausea, vomiting, 1 episode of diarrhea, abdominal pain in the right lower quadrant. ONCOLOGIC: Denies personal history of malignancy. DERMATOLOGIC: Denies rashes or pruritus. PSYCHIATRIC: Denies any suicidal or homicidal ideation. Denies hallucinations. PHYSICAL EXAM GENERAL APPEARANCE: The patient is awake, alert, and oriented, in no acute cardiopulmonary distress. HEENT: Face is symmetric. Pupils are equal and reactive. Extraocular movements are intact. CHEST: Normal chest expansion. No Telemetry. LUNGS: Absence of any rales, rhonchi or any wheezing. CARDIOVASCULAR: Regular. S1 and S2 normal. No appreciable rubs, murmurs or gallops. ABDOMEN: Tenderness in the right lower quadrant. There is no rebound, voluntary guarding, or rigidity. : Deferred. No Quesada. EXTREMITIES: Non-edematous and not cyanotic. No clubbing. Good capillary refill. SKIN: No skin breakdown. Vital Signs (last 8hr) Date Time Temp Pulse Resp B/P (MAP) Pulse Ox O2 Delivery O2 Flow Rate FiO2 07/02/25 07:49 98.8 68 18 127/75 97 Room Air 21 LABS: Laboratory: Test 07/02/25 05:31 07/01/25 20:00 07/01/25 12:34 07/01/25 08:42 Range/Units White Blood Count 14.0 H 4.8-10.8 K/uL Red Blood Count 4.41 4.00-5.50 MIL/uL Hemoglobin 11.7 L 12.0-16.0 g/dL Hematocrit 36.2 36-48 % Mean Corpuscular Volume 82.1 79-99 fL Mean Corpuscular Hemoglobin 26.5 L 27.0-33.0 pg Mean Corpuscular Hemoglobin Concent 32.3 32.0-36.0 g/dL Red Cell Distribution Width 17.0 H 11.0-15.5 % Platelet Count 333 130-400 K/uL Mean Platelet Volume 10.6 H 7.5-10.5 fL Immature Granulocyte % (Auto) 0.4 0-1 % Neutrophils (%) (Auto) 78.1 H 40.0-77.0 % Lymphocytes (%) (Auto) 17.6 L 21.0-51.0 % Monocytes (%) (Auto) 3.6 3.0-13.0 % Eosinophils (%) (Auto) 0.2 0.0-8.0 % Basophils (%) (Auto) 0.1 0.0-5.0 % Neutrophils # (Auto) 10.9 H 1.8-7.7 K/uL Lymphocytes # (Auto) 2.5 1.0-4.8 K/uL Monocytes # (Auto) 0.5 0.1-1.0 K/uL Eosinophils # (Auto) 0.03 0.00-0.70 K/uL Basophils # (Auto) 0.02 0.00-0.20 K/uL Absolute Immature Granulocyte (auto 0.05 0-1 K/uL Nucleated Red Blood Cells 0.0 0.0-0.19 % Sodium Level 139 136-145 mmol/L Potassium Level 3.8 3.5-5.1 mmol/L Chloride Level 104 101-111 mmol/L Carbon Dioxide Level 25 21-32 mmol/L Blood Urea Nitrogen 6 L 7-18 mg/dL Creatinine 0.6 0.5-1.0 mg/dL Glomerular Filtration Rate Calc 122 >90 mL/min Random Glucose 92 70-105 mg/dL Total Calcium 9.1 8.5-10.1 mg/dL Whole Blood Glucose 126 H 70-110 MG/DL Lactic Acid Level 1.6 0.8-2.5 mmol/L Hemoglobin A1c 5.7 4.0-6.0 % Estimated Average Glucose (eAG) 117 70-126 mg/dL C-Reactive Protein, Quantitative 21.20 H 0.5-3.0 mg/L Procalcitonin < 0.05 L 0.05-0.5 ng/mL Thyroid Stimulating Hormone (TSH) 0.91 0.36-3.74 uIU/mL Test 07/01/25 04:26 07/01/25 04:00 Range/Units Prothrombin Time 10.2 9.6-11.6 SEC Prothromb Time International Ratio 0.96 0.85-1.15 Activated Partial Thromboplast Time 30.2 26.3-35.5 SEC Total Bilirubin 0.2 0.2-1.0 mg/dL Direct Bilirubin 0.1 0.0-0.3 mg/dL Aspartate Amino Transf (AST/SGOT) 18 10-37 U/L Alanine Aminotransferase (ALT/SGPT) 35 12-78 U/L Alkaline Phosphatase 123 50-136 U/L Total Creatine Kinase 92 21-232 U/L Total Protein 7.5 6.0-8.3 g/dL Albumin 3.5 3.5-5.0 g/dL Lipase 29 16-77 U/L Human Chorionic Gonadotropin, Quant 0 0-5 mIU/mL Urine Color LIGHT-YELLOW YELLOW Urine Appearance CLEAR CLEAR Urine pH 6.0 5.0-8.0 Urine Specific Rosalie 1.027 1.001-1.031 Urine Protein NEGATIVE NEGATIVE mg/dL Urine Glucose (UA) NEGATIVE NEGATIVE mg/dL Urine Ketones NEGATIVE NEGATIVE mg/dL Urine Occult Blood NEGATIVE NEGATIVE Urine Nitrate NEGATIVE NEGATIVE Urine Bilirubin NEGATIVE NEGATIVE mg/dL Urine Urobilinogen 0.2 0.2-1.0 mg/dL Urine Leukocyte Esterase NEGATIVE NEGATIVE Cosme/uL Current Medications Medications (Trade) Dose Ordered Sig/Huber Route PRN Reason Start Time Stop Time Status Last Admin Dose Admin Acetaminophen (TYLenol 325MG TAB) 650 mg Q4H PRN PO MILD PAIN (1-3) 07/01/25 08:30 07/31/25 08:29 Acetaminophen (TYLenol 325MG TAB) 650 mg Q6H PRN PO TEMPERATURE GREATER THAN 101.5 07/01/25 08:30 07/31/25 08:29 Ceftriaxone Sodium (ROCEphine 1G INJ) 1 gm Q24H IVPB 07/01/25 08:30 07/11/25 08:29 07/02/25 08:46 1 GM Diphenhydramine HCl (BENAdryl INJ) 25 mg Q6H PRN IV ITCHING / Allergies 07/02/25 09:30 08/01/25 09:29 Magnesium Sulfate 50 ml @ 0 mls/hr PROTOCOL PRN IV mgprotocol 07/01/25 08:00 07/31/25 07:59 Metronidazole/ Sodium Chloride 100 ml @ 100 mls/hr Q8H6 IVPB 07/01/25 14:00 07/11/25 13:59 07/02/25 05:41 100 MLS/HR Morphine Sulfate (morPHINE 2MG SYG) 6 mg Q6H PRN IVP SEVERE PAIN (7-10) 07/02/25 09:30 07/06/25 11:59 Morphine Sulfate (morPHINE 4MG SYG) 6 mg Q6H PRN IVP SEVERE PAIN (7-10) 07/01/25 12:00 07/02/25 09:24 DC Ondansetron HCl (zoFRAN 4MG INJ) 4 mg Q6H PRN IVP NAUSEA/VOMITING 07/01/25 08:30 07/31/25 08:29 Pantoprazole Sodium (PROTonix 40MG INJ) 40 mg DAILY IVP 07/01/25 09:00 07/31/25 08:59 07/02/25 08:46 40 MG Potassium Chloride 100 ml @ 50 mls/hr AD PRN IV POTASSIUM PROTOCOL 07/01/25 08:00 07/31/25 07:59 Potassium Chloride 100 ml @ 100 mls/hr AD PRN IV POTASSIUM PROTOCOL 07/01/25 08:00 07/02/25 09:23 DC Potassium Chloride (K-Dur/Klor-Con 20meq) 20 meq AD PRN PO POTASSIUM PROTOCOL 07/01/25 08:00 07/31/25 07:59 Potassium Chloride (KCl 10% Elixir 20meq/15ml) 20 meq AD PRN PO POTASSIUM PROTOCOL 07/01/25 08:00 07/31/25 07:59 DIAGNOSTICS / RADIOLOGY: DATE OF PROCEDURE: 07/01/25 PREOPERATIVE DIAGNOSIS: Acute appendicitis POSTOPERATIVE DIAGNOSIS: Acute uncomplicated appendicitis SYNOPSIS: None PROCEDURE: Laparoscopic appendectomy ESTIMATED BLOOD LOSS: 15 cc INDICATIONS: This is a 34-year-old female with 24 hours of right lower quadrant abdominal pain. She had a leukocytosis and a CT scan showing an enlarged and indurated appendix. Patient was admitted and started on IV antibiotics. Surgery was consulted for acute appendicitis. I recommended laparoscopic appendectomy. I discussed the procedure in detail with the patient. All questions were answered. The patient expressed understanding and agreement with the plan. DESCRIPTION OF PROCEDURE: Patient was placed on the operating table in the supine position with the left arm tucked. After being sedated and intubated by anesthesia the abdomen was prepped and draped in the usual sterile fashion. Patient is on antibiotics from the floor next dose not due for 3 hours. A transverse supraumbilical skin incision was made and dissection was carried down to the level of fascia. The fascia was grasped with 2 Boone clamps and elevated. The fascia was incised and the peritoneum was entered bluntly. A 12 mm balloon port was inserted into the peritoneal cavity and the abdomen was insufflated. The patient tolerated insufflation well. A laparoscopic camera was inserted into the abdomen and all 4 quadrants were inspected. No gross abnormalities apparent and no evidence of inadvertent injury apparent. Two 5 mm ports were then placed in the suprapubic region and left lower quadrant under direct visualization. The patient was placed in Trendelenburg position with right side up. The appendix was identified and found to be indurated and dilated with minimal adhesions to surrounding fat. The mesoappendix was divided using the Vuoyant vessel sealing device. The base of the appendix was trans ected using a blue load laparoscopic stapling device. The staple line was inspected and found to be hemostatic. The appendix was placed into a laparoscopic bag. A moderate amount of turbid fluid was suctioned from the pelvis. The 5 mm ports were removed under direct visualization and no ongoing bleeding evident. The appendix was removed with the 12 mm port and handed off for routine pathology. The fascia of the 12 mm port site was approximated using 0 Vicryl in a single [id number] suture. The skin was approximated using skin ludwig. Wounds were dressed with gauze and tape. All instrument, needle, and sponge counts were correct at the end of the procedure. The patient tolerated the procedure well. The patient was aroused from sedation extubated and taken to the postanesthesia care unit in good condition. CHRIS BOWDEN DO [place] [address] [address] IMAGING REPORT Addendum PATIENT: RASHEED SULLIVAN MR#: [id number] : 1990 SEX: F AGE: 34 LOCATION: [facility] ORDER 7 STATUS: REG ER REPORT#: [id number] SERVICE REASON: Post 4 weeks. RLQ pain N?V?D- evaluate Appendicitis or renal colic ORDERING PHYSICIAN: BRONWYN KAUR MD PROCEDURE: ABD PEL WO - CT ABDOMEN/PELVIS W/O CONTRAST ADDENDUM REPORT ADDENDUM: Results were shared by telephone at 7:07 am on 07/01/25 and acknowledged by Chart Nurse Stacey Alfa Olguin /[place] EXAM: CT Abdomen and Pelvis without IV contrast CLINICAL HISTORY: Pain. TECHNIQUE: Thin collimated axial CT images of the abdomen and pelvis were obtained with sagittal and coronal reformatted images also submitted. CT scan is done according to ALARA (As Low As Reasonably Achievable). CONTRAST: None. COMPARISON: None. FINDINGS: Mild subsegmental atelectasis in the left lingula and lower lobes. Mild hepatomegaly. There are a few gallstones with questionable gallbladder sludge and subtle gallbladder wall thickening. No focal abnormality within the pancreas, spleen, adrenals, or kidneys. The urinary bladder is suboptimally distended and grossly unremarkable. Enlarged uterus with multiple uterine fibroids, the largest subserosal uterine fibroid in the right posterior fundal region measures up to 5 cm. 2 cm follicular cyst in the right ovary. Unremarkable left ovary. There is a thickened and inflamed retrocecal appendix, measuring up to 1.8 cm in diameter with periappendiceal fatty stranding, compatible with acute appendicitis. No significant bowel dilatation or obstruction. Limited evaluation of the abdominal vessels due to the lack of intravenous contrast. No abdominal aortic aneurysm is evident. No pathological lymphadenopathy in the abdomen or pelvis. No ascites or pneumoperitoneum. No acute bony abnormality is evident. Bilateral chronic L5 spondylolysis with grade 1 anterior listhesis of L5 on S1. IMPRESSIONS: There is acute appendicitis without perforation or abscess. Uterine fibroids. Follicular cyst in the right ovary. Mild hepatomegaly. Bilateral chronic L5 spondylolysis with grade 1 anterior listhesis of L5 on S1. /[place] DICTATED BY: ISABEL RIVERA Jr., MD DATE: 07/01/25 0709 ELECTRONICALLY SIGNED BY: DATE: EXAM: CT Abdomen and Pelvis without IV contrast CLINICAL HISTORY: Pain. TECHNIQUE: Thin collimated axial CT images of the abdomen and pelvis were obtained with sagittal and coronal reformatted images also submitted. CT scan is done according to ALARA (As Low As Reasonably Achievable). CONTRAST: None. COMPARISON: None. FINDINGS: Mild subsegmental atelectasis in the left lingula and lower lobes. Mild hepatomegaly. There are a few gallstones with questionable gallbladder sludge and subtle gallbladder wall thickening. No focal abnormality within the pancreas, spleen, adrenals, or kidneys. The urinary bladder is suboptimally distended and grossly unremarkable. Enlarged uterus with multiple uterine fibroids, the largest subserosal uterine fibroid in the right posterior fundal region measures up to 5 cm. 2 cm follicular cyst in the right ovary. Unremarkable left ovary. There is a thickened and inflamed retrocecal appendix, measuring up to 1.8 cm in diameter with periappendiceal fatty stranding, compatible with acute appendicitis. No significant bowel dilatation or obstruction. Limited evaluation of the abdominal vessels due to the lack of intravenous contrast. No abdominal aortic aneurysm is evident. No pathological lymphadenopathy in the abdomen or pelvis. No ascites or pneumoperitoneum. No acute bony abnormality is evident. Bilateral chronic L5 spondylolysis with grade 1 anterior listhesis of L5 on S1. IMPRESSIONS: There is acute appendicitis without perforation or abscess. Uterine fibroids. Follicular cyst in the right ovary. Mild hepatomegaly. Bilateral chronic L5 spondylolysis with grade 1 anterior listhesis of L5 on S1. /[place] DICTATED BY: ISABEL RIVERA Jr., MD DATE: 07/01/25702 ELECTRONICALLY SIGNED BY: ISABEL RIVERA Jr., MD DATE: 07/01/25702 ASSESSMENT: Acute appendicitis, POA PLAN: Acute appendicitis: -CT abdomen and pelvis on 07/01/25 confirmed the presence of acute appendicitis. -patient's WBC count trending down from 21.9 to 14 today. -general surgery performed appendectomy yesterday, recovery is going well. -patient is receiving 6 mg morphine q.6 hours for pain management. -CRP was 21.2, procalcitonin was less than 0.05, lactic acid was 1.6 yesterday, we will trend these to assess recovery -continue to monitor for now. ATTESTATION BY PHYSICIAN I have seen and examined the patient. I reviewed the documentation, medical decision making, and treatment plan as noted by the resident provider above. I agree with the findings and plan of care. Jac Echevarria MD, HEMA MD Jul 02, 2025 11:25
--- NOTE | 2025-07-02 11:31 | NUR ---
DCP:HOME Pt currently lives with mom in her home. $152 in [employer] benefits. Pt does not have any DME, home health, and no provider service. Pt states that he is able to complete ADLs independently. PCP is Dr. Bekah Pittman and uses [facility] for any RX needs. At [place] pt will want to go home and family will assist with transportation. Addendum: 07/02/25 at 1133 by ROBERT SANCHEZ SS Amended: Links added.
[2025-07-02 15:46] VITALS: BP 110/70; PULSE 68; RESP 19; TEMP 97.9
[2025-07-02 16:05] LABS: % IRON SATURATION 18.7 % (22-44); IRON, SERUM 52.0 mcg/dL (50-170)
--- NOTE | 2025-07-02 18:37 | DS ---
Discharge Summary Hospital Course Summary: Patient is a 34-year-old female who presented to the emergency department with complaints of abdominal pain. She has not no significant past medical history other than a performed 4 weeks ago for the delivery of her 1st baby. Patient stated that the pain started around 8 PM yesterday night in the area above the umbilicus and gradually migrated to her right lower quadrant. She states that the pain is sharp and radiates to her back. Patient also reported an episode of nausea and vomiting associated with the pain. Patient then came to the ED where she was given pain medications to help relieve her pain. On admission the patient's blood pressure was 139/76, respiratory rate was 20, pulse rate was 94, and a temperature of 98.8. Labs showed that the patient had an elevated white blood cell count at 21.9 with a relative neutrophilia of 85.4% indicating a left shift. CT abdomen and pelvis on 07/01 revealed acute appendicitis without perforation or abscess, uterine fibroids, follicular cyst in the right ovary, mild hepatomegal y, and bilateral chronic L5 spondylolysis with grade 1 anterior listhesis of L5 on S1. general surgery was consulted for evaluation of the patient for appendicitis. Patient underwent appendectomy on 07/01 successfully without any acute complications. Patient underwent a good recovery without any acute events. Patient's clinical course was stable throughout her stay in the hospital. On 07/02/2025, patient was deemed clinically stable and General surgery also cleared the patient for discharge. Based on a shared decision making patient will be discharged today with advise to follow up with her primary care physician within 3-5 days and follow up with General surgery regarding her recovery from her appendectomy. Patient was advised to take Tylenol as needed for the pain near the incision site. Order Make Up Clerk(s): Order Make Up Clerk: General Surgery 07/01/2025: Assessment: This is a 34-year-old female with the acute appendicitis Plan: At this point in time patient is to remain NPO Patient will be scheduled for laparoscopic appendectomy to be performed by Dr. Edgardo Bowden Surgical team to follow patient closely Nursing to report any further acute events Procedure(s): [place] [address] [id number] IMAGING REPORT Addendum PATIENT: RASHEED SULLIVAN MR#: [id number] : 1990 SEX: F AGE: 34 LOCATION: [facility] ORDER 7 STATUS: REG ER REPORT#: [id number] SERVICE REASON: Post 4 weeks. RLQ pain N?V?D- evaluate Appendicitis or renal colic ORDERING PHYSICIAN: BRONWYN KAUR MD PROCEDURE: ABD PEL WO - CT ABDOMEN/PELVIS W/O CONTRAST ADDENDUM REPORT ADDENDUM: Results were shared by telephone at 7:07 am on 07/01/25 and acknowledged by Chart Nurse Alfa Poole /[place] EXAM: CT Abdomen and Pelvis without IV contrast CLINICAL HISTORY: Pain. TECHNIQUE: Thin collimated axial CT images of the abdomen and pelvis were obtained with sagittal and coronal reformatted images also submitted. CT scan is done according to ALARA (As Low As Reasonably Achievable). CONTRAST: None. COMPARISON: None. FINDINGS: Mild subsegmental atelectasis in the left lingula and lower lobes. Mild hepatomegaly. There are a few gallstones with questionable gallbladder sludge and subtle gallbladder wall thickening. No focal abnormality within the pancreas, spleen, adrenals, or kidneys. The urinary bladder is suboptimally distended and grossly unremarkable. Enlarged uterus with multiple uterine fibroids, the largest subserosal uterine fibroid in the right posterior fundal region measures up to 5 cm. 2 cm follicular cyst in the right ovary. Unremarkable left ovary. There is a thickened and inflamed retrocecal appendix, measuring up to 1.8 cm in diameter with periappendiceal fatty stranding, compatible with acute appendicitis. No significant bowel dilatation or obstruction. Limited evaluation of the abdominal vessels due to the lack of intravenous contrast. No abdominal aortic aneurysm is evident. No pathological lymphadenopathy in the abdomen or pelvis. No ascites or pneumoperitoneum. No acute bony abnormality is evident. Bilateral chronic L5 spondylolysis with grade 1 anterior listhesis of L5 on S1. IMPRESSIONS: There is acute appendicitis without perforation or abscess. Uterine fibroids. Follicular cyst in the right ovary. Mild hepatomegaly. Bilateral chronic L5 spondylolysis with grade 1 anterior listhesis of L5 on S1. /[place] DICTATED BY: ISABEL RIVERA Jr., MD DATE: 07/01/25708 ELECTRONICALLY SIGNED BY: DATE: EXAM: CT Abdomen and Pelvis without IV contrast CLINICAL HISTORY: Pain. TECHNIQUE: Thin collimated axial CT images of the abdomen and pelvis were obtained with sagittal and coronal reformatted images also submitted. CT scan is done according to ALARA (As Low As Reasonably Achievable). CONTRAST: None. COMPARISON: None. FINDINGS: Mild subsegmental atelectasis in the left lingula and lower lobes. Mild hepatomegaly. There are a few gallstones with questionable gallbladder sludge and subtle gallbladder wall thickening. No focal abnormality within the pancreas, spleen, adrenals, or kidneys. The urinary bladder is suboptimally distended and grossly unremarkable. Enlarged uterus with multiple uterine fibroids, the largest subserosal uterine fibroid in the right posterior fundal region measures up to 5 cm. 2 cm follicular cyst in the right ovary. Unremarkable left ovary. There is a thickened and inflamed retrocecal appendix, measuring up to 1.8 cm in diameter with periappendiceal fatty stranding, compatible with acute appendicitis. No significant bowel dilatation or obstruction. Limited evaluation of the abdominal vessels due to the lack of intravenous contrast. No abdominal aortic aneurysm is evident. No pathological lymphadenopathy in the abdomen or pelvis. No ascites or pneumoperitoneum. No acute bony abnormality is evident. Bilateral chronic L5 spondylolysis with grade 1 anterior listhesis of L5 on S1. IMPRESSIONS: There is acute appendicitis without perforation or abscess. Uterine fibroids. Follicular cyst in the right ovary. Mild hepatomegaly. Bilateral chronic L5 spondylolysis with grade 1 anterior listhesis of L5 on S1. /[place] DICTATED BY: ISABEL RIVERA Jr., MD DATE: 07/01/25702 ELECTRONICALLY SIGNED BY: ISABEL RIVERA Jr., MD DATE: 07/01/25 07 OPERATIVE REPORT Name: RASHEED SULLIVAN Acct: [id number] MR: [id number] : 1990 Admit Date: 07/01/25 EDGARDO BOWDEN DO [facility] [address] [place] [id number] Operative Note: DATE OF PROCEDURE: 07/01/25 SURGEON: EDGARDO BOWDEN DO PUBLIC POLICY MEDIATOR: None ANESTHESIA: General ANESTHESIOLOGIST/SOCIAL MEDIA SPECIALIST: SOCIAL MEDIA SPECIALIST PREOPERATIVE DIAGNOSIS: Acute appendicitis POSTOPERATIVE DIAGNOSIS: Acute uncomplicated appendicitis SYNOPSIS: None PROCEDURE: Laparoscopic appendectomy ESTIMATED BLOOD LOSS: 15 cc INDICATIONS: This is a 34-year-old female with 24 hours of right lower quadrant abdominal pain. She had a leukocytosis and a CT scan showing an enlarged and indurated appendix. Patient was admitted and started on IV antibiotics. Surgery was consulted for acute appendicitis. I recommended laparoscopic appendectomy. I discussed the procedure in detail with the patient. All questions were answered. The patient expressed understanding and agreement with the plan. DESCRIPTION OF PROCEDURE: Patient was placed on the operating table in the supine position with the left arm tucked. After being sedated and intubated by anesthesia the abdomen was prepped and draped in the usual sterile fashion. Patient is on antibiotics from the floor next dose not due for 3 hours. A transverse supraumbilical skin incision was made and dissection was carried down to the level of fascia. The fascia was grasped with 2 Boone clamps and elevated. The fascia was incised and the peritoneum was entered bluntly. A 12 mm balloon port was inserted into the peritoneal cavity and the abdomen was insufflated. The patient tolerated insufflation well. A laparoscopic camera was inserted into the abdomen and all 4 quadrants were inspected. No gross abnormalities apparent and no evidence of inadvertent injury apparent. Two 5 mm ports were then placed in the suprapubic region and left lower quadrant under direct visualization. The patient was placed in Trendelenburg position with right side up. The appendix was identified and found to be indurated and dilated with minimal adhesions to surrounding fat. The mesoappendix was divided using the Vuoyant vessel sealing device. The base of the appendix was transected using a blue load laparoscopic stapling device. The staple line was inspected and found to be hemostatic. The appendix was placed into a laparoscopic bag. A moderate amount of turbid fluid was suctioned from the pelvis. The 5 mm ports were removed under direct visualization and no ongoing bleeding evident. The appendix was removed with the 12 mm port and handed off for routine pathology. The fascia of the 12 mm port site was approximated using 0 Vicryl in a single [id number] suture. The skin was approximated using skin ludwig. Wounds were dressed with gauze and tape. All instrument, needle, and sponge counts were correct at the end of the procedure. The patient tolerated the procedure well. The patient was aroused from sedation extubated and taken to the postanesthesia care unit in good condition. EDGARDO BOWDEN DO Jul 01, 2025 14:48 Electronically Signed by: EDGARDO BOWDEN DO07/01/25 1448 Electronically Co-Signed by: Assessment/Plan: ASSESSMENT: Acute appendicitis, POA PLAN: Acute appendicitis: -CT abdomen and pelvis on 07/01/25 confirmed the presence of acute appendicitis. -patient's WBC count trending down from 21.9 to 14 today. -general surgery performed appendectomy yesterday, recovery is going well. -patient is receiving 6 mg morphine q.6 hours for pain management. -CRP was 21.2, procalcitonin was less than 0.05, lactic acid was 1.6 yesterday, we will trend these to assess recovery -continue to monitor for now. Discharge Instructions: You were admitted with a appendicitis and underwent surgery to remove the appendix (appendectomy). Your recovery is going well, and you are ready to go home. Take pain medications as prescribed, and finish any antibiotics if they were given. Keep your incision site clean and dry, and wash gently with mild soap and water, then pat dry. Avoid lifting heavy objects or strenuous activity until your surgeon to clears you. Watch for signs of infection such as redness, swelling, drainage, fever, or or worsening abdominal pain, and seek medical care right away if these occur. Please follow up with your surgeon as scheduled for your postoperative check to make sure your healing well. Follow up with your primary care physician within 3-5 days. Home Medications: Active Scripts Loratadine (Loratadine) 10 Mg Tablet, 1 TAB PO DAILY for allergy symptoms for 7 Days, #7 TAB 0 Refills Prov:ELADIO STOVALL 01/09/25 Sodium Chloride (Saline Nasal [place]) 0.65 % [place], 1 SPRAY NS QID for 7 Days, #60 ML 0 Refills Prov:ELADIO STOVALL 01/09/25 Sulfamethoxazole/Trimethoprim (Bactrim Ds Tablet) 800 Mg-160 Mg Tablet, 1 TAB PO BID for 10 Days, #20 TAB 0 Refills Prov:ANSHU FOX MD 07/25/23 Ibuprofen (Ibuprofen) 600 Mg Tablet, 600 MG PO Q6H PRN for PAIN, #15 TAB Prov:KAL YANCEY 02/15/23 Continued Medications: Ibuprofen (Ibuprofen) 600 Mg Tablet 600 MG PO Q6H PRN for PAIN, #15 TAB Loratadine (Loratadine) 10 Mg Tablet 1 TAB PO DAILY for allergy symptoms for 7 Days, #7 TAB 0 Refills Sodium Chloride (Saline Nasal [place]) 0.65 % [place] 1 SPRAY NS QID for 7 Days, #60 ML 0 Refills Discontinued Medications: Sulfamethoxazole/Trimethoprim (Bactrim Ds Tablet) 800 Mg-160 Mg Tablet 1 TAB PO BID for 10 Days, #20 TAB 0 Refills Time spent arranging discharge: 1-30 minutes ATTESTATION BY PHYSICIAN I have seen and examined the patient. I reviewed the documentation, medical decision making, and treatment plan as noted by the resident provider above. I agree with the findings and plan of care. Jac Echevarria MD, HEMA MD Jul 02, 2025 18:37
--- NOTE | 2025-07-02 19:07 | NUR ---
PATIENT DISCHARGED HOME ID BAND AND IV REMOVED. DISCHARGE INSTRUCTIONS EXPLAINED AND GIVEN TO PATIENT. PATIENT VERBALIZED UNDERSTANDING. BELONGINGS PACKED AND TAKEN BY PATIENT. WHEELED DOWN TO PRIVATE CAR.
== END 2025-07-02 19:05 | disposition home or self-care (01) ==
LOC: EDH 03:52 → INTOOBSV 03:53 → EDHIP 03:53 → 4BH 13:55
PROVIDERS: ADMIT Internal Medicine; ATTEND Internal Medicine
DX: K35.80 Unspecified acute appendicitis (principal); D25.9 Leiomyoma of uterus, unspecified; R11.2 Nausea with vomiting, unspecified; R19.7 Diarrhea, unspecified; E66.9 Obesity, unspecified; R10.2 Pelvic and perineal pain; Z68.41 Body mass index [BMI] 40.0-44.9, adult; Z79.899 Other long term (current) drug therapy; Z98.890 Other specified postprocedural states
CPT/HCPCS: 44970; 96376 ×2; 96365; 96375 ×2; 96367; 99285; 83036; 84443; 82550; 80076; 80048 ×2; 84702; 83690; 85025 ×2; 85610; 85730; 82948; 83605 ×2; 86140; 81003; 36415 ×2; 88304; 74176; 84145; 96366; 83540; 83550; 97161; 97116; 97530 ×2; J7030 ×2; A4344; J3010; J0690; J1171; J2270 ×2; J0665; J3490 ×5; J2003; J0696 ×2; J2250; J2704; J2405 ×3; J2543; J2470 ×2; J1100; J2795; J2371; A6206; C1769 ×3; A4649 ×2; A4223; A4222; A4216; A4600; G0378 ×7; 96374

== ENCOUNTER → 2025-09-25 | Outpatient (CLI) | payer MEDICAID, OTHER ==
[~2025-09-25] VITALS: Ht 2.5 cm; Wt 108.4 kg
[~2025-09-25] MED LIST changes: -SULF1TAB42 PO
== END | disposition home or self-care (01) ==
LOC: DTH 08:24
PROVIDERS: ATTEND Surgery
DX: E66.01 Morbid (severe) obesity due to excess calories (principal); M19.91 Primary osteoarthritis, unspecified site; K21.9 Gastro-esophageal reflux disease without esophagitis; Z71.3 Dietary counseling and surveillance; G47.33 Obstructive sleep apnea (adult) (pediatric); E78.00 Pure hypercholesterolemia, unspecified; E66.3 Overweight
CPT/HCPCS: 97802

== ENCOUNTER → 2025-09-25 | Outpatient (CLI) | payer MEDICAID ==
[2025-09-25 10:39] LABS: IMMATURE GRANULOCYTE ABSOLUTE 0.05 K/uL (0-1); NUCLEATED RED BLOOD CELLS 0.0 % (0.0-0.19); PLATELET COUNT (AUTO) 410 K/uL (130-400); RED BLOOD CELL COUNT(AUTO) 4.57 MIL/uL (4.00-5.50); RED CELL DISTRIBUTION WIDTH 15.5 % (11.0-15.5); WHITE BLOOD COUNT (AUTO) 11.7 K/uL (4.8-10.8)
[2025-09-25 11:00] LABS: % IRON SATURATION 12.3 % (22-44); IRON, SERUM 46.0 mcg/dL (50-170)
[2025-09-25 11:37] LABS: ASPARTATE AMINOTRANSFERASE 28 U/L (10-37); GLUCOSE,RANDOM 97 mg/dL (70-105); LDL DIRECT 129 mg/dL (0-99); SODIUM SERUM 139 mmol/L (136-145); TOTAL PROTEIN, SERUM 7.5 g/dL (6.0-8.3); UREA NITROGEN, BLOOD 11 mg/dL (7-18)
[2025-09-25 12:19] LABS: CREATININE 0.7 mg/dL (0.5-1.0); GLOMERULAR FILTR. RATE CALC 117 mL/min (>90)
--- NOTE | 2025-09-25 13:28 | EKG ---
[facility] Test Date: 2025-09-25 Test Time: 10:30:34 Pat Name: RASHEED SULLIVAN Department: LAB Room: Gender: F Heel Stiffener: [id number] : 1990 Requested By: CHRIS LEW Order Number: [id number] Reading MD: Maria E Ashley Measurements Intervals [place] Rate: 60 P: 40 MO: 124 QRS: 53 QRSD: 78 T: 16 QT: 460 QTc: 460 Interpretive Statements Normal sinus rhythm Nonspecific ST abnormality No previous ECG available for comparison Electronically Signed On 09-26-2025 08:48:31 NON DESTRUCTIVE TESTER by Maria E Ashley Please click the below link to view image of tracing.
--- NOTE | 2025-09-25 21:03 | HMCIMG ---
EXAM: XR Chest, 1 View(s). CLINICAL HISTORY: Pre-op COMPARISON: None provided. FINDINGS: LUNGS: The lungs are clear. No consolidation. PLEURAL SPACES: No pleural effusion or pneumothorax. HEART: Cardiac shadow at upper limits of normal. BONES: Subtle curvature of thoracic spine likely positional. IMPRESSION: * No acute cardiopulmonary process. /[place]
== END | disposition home or self-care (01) ==
LOC: LAB 08:15
PROVIDERS: ATTEND Surgery
DX: E78.00 Pure hypercholesterolemia, unspecified (principal); K21.9 Gastro-esophageal reflux disease without esophagitis; M19.91 Primary osteoarthritis, unspecified site; E66.01 Morbid (severe) obesity due to excess calories; G47.33 Obstructive sleep apnea (adult) (pediatric); Z68.41 Body mass index [BMI] 40.0-44.9, adult; Z71.3 Dietary counseling and surveillance
CPT/HCPCS: 36415; 71045; 80053; 80061; 82306; 82607; 82728; 82746; 83036; 83540; 83550; 83735; 84207; 84425; 84439; 84443; 84446; 84481; 84590; 84630; 85025; 93005; 97802

== ENCOUNTER → 2025-10-23 | Outpatient (CLI) | payer OTHER | END | disposition home or self-care (01) | LOC: DTH 09:09 | PROVIDERS: ATTEND Surgery | DX: E66.01 Morbid (severe) obesity due to excess calories (principal); E78.00 Pure hypercholesterolemia, unspecified; K21.9 Gastro-esophageal reflux disease without esophagitis; G47.33 Obstructive sleep apnea (adult) (pediatric); M19.91 Primary osteoarthritis, unspecified site; Z68.41 Body mass index [BMI] 40.0-44.9, adult | CPT/HCPCS: 97803 ==